=== PATIENT | male | born 1990 | race Caucasian/White ===

== ENCOUNTER 2024-09-27 08:00 | Outpatient (RCR) | payer OTHER, SELFPAY ==
--- NOTE | 2024-09-27 09:00 | BH.SGPN.GN ---
Behaviors/Verbalizations/Mental Status: [] Eye contact is good. Motor activity is appropriate. Appearance is casual. Speech is Appropriate. Mood is depressed. Affect is constricted. Thoughts are linear and logical. No evidence of psychosis. Reviewed daily check in sheet and no reports of suicidal ideations or intent. Client Response/Progress/Benefit: [] Pt was an active participants in group discussions. Daily symptom tracker notes 5 for depression and 5 for anxiety. Attentive. Today was pt's first day in IOP and he briefly introduced himself and his struggles. According to pt he would benefit from increased coping/life skills and having a better headspace. Shared I get really depressed and lonely a lot. He did not share his recent psychiatric and residential admissions. No progress noted as this was his first day in IOP. Benefited from group support, encouragement, and feedback. Will continue in [facility] to maintain safety, prevent decompensation/re-admission to psych unit, and increase healthy coping strategies. Narrative Note: []
--- NOTE | 2024-09-27 09:58 | BH.COMM ---
Communication Note Communication with Client Communication Note: Met with pt to complete initial paperwork and administer the CSSR-S screening and risk assessment. Pt is a moderate-high risk AEB pt?s report of having recent fleeting SI without plan or intent as well as previous attempt ~7 months ago via overdose on Propranolol; does have a hx of chronic SI and one self-aborted attempt ~5 years ago via hanging self with belt. Pt also has a history of multiple inpatient psychiatric hospitalizations since age 15 and reports he has been in various psychiatric facilities 10 of the last 12 months. Pt denies any active SI today and reports his mother and goals for future as projective factors. Pt does not have a history of self-harming. Provided lethal means counseling and pt understands the reasons to remove any excess medications, agreeable to do so should he find any. Pt reports ability to maintain safety today. Discussed case with Dr. Monsalve and pt will be admitted to [facility] tx with a diagnosis of MDD F33.2
--- NOTE | 2024-09-27 10:15 | BH.SGPN.GN ---
Behaviors/Verbalizations/Mental Status: []Client alert and oriented, casually dressed and groomed. Eye contact good. Motor activity appropriate. Speech within normal limits. Affect congruent, mood depressed. Thoughts linear, logical, no signs of hallucinations or delusions. Client Response/Progress/Benefit: [] Pt 1st day in IOP tx; responded well to session AEB actively participating throughout group. Pt was attentive throughout group activity discussing famous individuals and how they overcame failure to be successful. Pt helped group identify how fear of failure can impact mental health and relationships. Pt personally identified it leads to pt shutting down and isolating. Participated in experiential activity, working with group members to problem solve. Appeared to benefit from increased knowledge of what causes fear of failure and how it impacts people. Will continue IOP tx to prevent decompensation, improve daily functioning, and maintain safety. Narrative Note: []
--- NOTE | 2024-09-27 11:15 | BH.SGPN.GN ---
Behaviors/Verbalizations/Mental Status: []Pt alert and oriented, neatly dressed and groomed. Eye contact good. Motor activity appropriate. Speech within normal limits. Affect congruent, mood depressed. Thoughts linear, logical, no signs of hallucinations or delusions. Client Response/Progress/Benefit: [] Pt responded well to session, engaged in the experiential activity and attentive throughout group processing. Pt reported fear of failure has kept Pt from socializing, education, and knowing his genuine self. Pt completed fear of failure worksheet and was able to identify thoughts and behaviors that reinforce personal fear of failure including low self-esteem, high standards, and avoidance. Pt participated in small group discussion regarding strategies to overcome fear of failure. Identified wanting to work on acceptance that setbacks will occur and setting small goals. Appeared to benefit from increased knowledge of strategies to combat fear of failure and gaining self-awareness. Pt will continue IOP tx to prevent decompensation and rehospitalization. Narrative Note: []
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
--- NOTE | 2024-09-27 12:00 | BH.MTP_ITS ---
[facility] Treatment Plan Patient Information Program Physician:: Mirela Vásquez Primary Therapist:: Roberto Hewitt Psychiatric Diagnoses Psychiatric Diagnoses:: 1. Major depressive disorder, recurrent, severe without psychosis 2. Anxiety disorder, NOS 3. Marijuana use disorder 4. Alcohol use disorder 5. Nicotine use disorder Diagnosis Code(s):: F33.2 Estimated LOS Estimated LOS (in weeks):: 8 Problem/Goal #1 Problem/Goal #1 Stated Goal:: Client will reduce depressive symptoms, worthlessness, guilt, passive thoughts of , and negative core beliefs associated with major depressive disorder AEB self-report and reduction of scores on the depression domain of the DSM-5 cross-cutting scales. Description of Barriers: Has received treatment at different levels of care since January (inpt psych, residential, traditional outpt, PHP, and IOP) with limited stability. Functional Impact: Depression has significantly impacted pt's functioning resulting in two residential facility and psych admissions since January 2024. Pt has been on FMLA from work for an extended period of time. Recently returned to work and was decompensating. Goal Relevant Strengths/Supports: Intelligent, well-versed in mental health skills, strong foundation of psychoeducation. Objectives Objective #1: Stated Objective: Client will work with therapist to develop a ?crisis plan? or emotional dysregulation plan which includes emergency telephone numbers, internal/external coping strategies for SI/overwhelming emotions, lists of supports, warning signs, positive aspects of life, and motivations Interventions: Client will work with therapist to develop a ?crisis plan? or emotional dysregulation plan which includes emergency telephone numbers, internal/external coping strategies for SI/overwhelming emotions, lists of supports, warning signs, positive aspects of life, and motivations Discharge Criteria: Complete emotion regulation plan. Reduction of scores on the depression and SI domains of the DSM-5 cross-cutting scales Target Date: 11/12/24 Review Date: 10/27/24 Objective #2: Stated Objective: Client will learn and utilize 2-3 healthy coping strategies (i.e. journaling, mental health apps for phone, affirmations, etc) to incorporate on a daily basis to manage depressive symptoms as shown by reduced DSM-5 cross-cutting symptom measure score. Interventions: Through individual and group counseling pt will be introduced to healthy strategies that can be utilized on a consistent basis. Therapist will work with patient on incorporating and practicing these strategies' consistently. Discharge Criteria: Pt will have chosen at least 3 healthy coping strategies that he is incorporating in his daily life. Target Date: 10/27/24 Review Date: 11/12/24 Problem/Goal #2 Problem/Goal #2 Stated Goal:: Client will reduce overall frequency, intensity, and duration of anxiety to improve functioning AEB self-report as well as reduction on the anxiety domain of the DSM-5 cross-cutting scales. Description of Barriers: Has received treatment at different levels of care since January (inpt psych, residential, traditional outpt, PHP, and IOP) with limited stability. Currently tapering down from 4mg of Ativan daily which has impacted his ability to manage anxiety. Functional Impact: Anxiety has significantly impacted pt's functioning resulting in two residential facility and psych admissions since January 2024. Pt has been on FMLA from work for an extended period of time. Recent return to work and tapering of Ativan have resulted in decompensation of mental health. Objectives Objective #1: Stated Objective: Client will identify and replace 2-3 mistaken core beliefs patterns that reinforce anxiety symptoms and negative self-talk.. Interventions: Through individual and group counseling will help client identify distorted, negative core beliefs about self and replace with more realistic, affirmative messages. Provide education on the impact mistaken aaron efs have on thoughts, emotions, and behaviors. Therapist will encourage client to practice thought challenging and thought logs. Discharge Criteria: Able to identify 2-3 mistaken core beliefs and CBT strategies to challenge these beliefs on a consistent basis Target Date: 11/12/24 Review Date: 10/27/24
--- NOTE | 2024-09-29 09:05 | BH.SGPN.GN ---
Behaviors/Verbalizations/Mental Status: [] Pt alert and oriented, casually dressed and groomed. Eye contact good. Motor activity appropriate. Speech within normal limits. Affect congruent, mood content. Thoughts linear, logical, no signs of hallucinations or delusions. Reviewed pt?s symptom tracker, no risk for suicidal ideation, plan, or intent 09/29/24 Client Response/Progress/Benefit: [] Pt was an active participant in group discussions. Attentive. Able to identify mental health wins including starting the [place] and TMS treatment yesterday, as well as starting to taper off of his anti-anxiety medication which is stressful but pt is proud of his ability to do so. Stressor noted as fear of relying more on marijuana to cope as he tapers off of medication. Identified costs of doing so and skills he can use to prevent this. Benefited from group support, encouragement, and feedback. Will continue in IOP to prevent decompensation, promote mood stability, and continue to improve use of healthy coping skills. Narrative Note: []
--- NOTE | 2024-09-29 11:10 | BH.SGPN.GN ---
Behaviors/Verbalizations/Mental Status: [] Pt alert and oriented, casually dressed and groomed. Eye contact good. Motor activity appropriate. Speech within normal limits. Affect congruent, mood euthymic. Thoughts linear, logical, no signs of hallucinations or delusions. Client Response/Progress/Benefit: [] Pt was an active participant AEB pt providing input and listening attentively to peers. Attentive during psychoeducation on mindfulness coping skills and their impact on reducing anxiety and improving overall mental health wellness. Group was able to identify self-soothing and mind-based coping skills which included: 5-senses, meditation, deep breathing, TIPP, thought challenging, and progressive muscle relaxation. Pt also participated with peers in practicing mindfulness skills in session including deep breathing. Pt would like to work on using exercise, grounding, and breathing skills to manage anxiety. Appeared to benefit from increasing repertoire of anxiety reduction skills. Pt will continue in IOP tx to improve distress tolerance, challenge distortions, and prevent decompensation.
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
--- NOTE | 2024-09-29 12:44 | BH.DR.ITP ---
Initial Treatment Plan Patient Information Visit Information: ADMISSION DATE: EXPECTED LOS: 4-6 weeks Problems/Symptoms Problem #1:: Depression Symptom:: Sadness, hopelessness, worthlessness, guilt, biological disruption of appetite, low energy, decreased concentration, passive thoughts of , passive, fleeting suicidal ideation Problem #2:: Anxiety Symptom:: Worry, rumination, impending sense of doom, avoidance
--- NOTE | 2024-10-01 09:00 | BH.SGPN.GN ---
Behaviors/Verbalizations/Mental Status: [] Client alert and oriented, casual appearance. Eye contact fair. Motor activity appropriate. Speech within normal limits. Affect congruent, mood anxious. Thoughts linear, logical, no signs of hallucinations or delusions. Reviewed client's symptom tracker, no risk for suicidal ideation, plan, or intent. Client Response/Progress/Benefit: [] Client responded well to session AEB listening to others and sharing thoughts/feelings. Client reported mental health positive as significantly cutting down on his marijuana use since last time attended IOP. Client stated he knows going back to significant marijuana use doesn't make him feel better. Client reported additional mental health positive as choosing to help out a co-worker instead of just choosing to go home. Client reported current stressor as tapering off a medication he has been put on when he was in residential care. Will continue IOP tx to improve distress tolerance, increase healthy coping skills, and prevent decompensation.
--- NOTE | 2024-10-01 10:15 | BH.SGPN.GN ---
Behaviors/Verbalizations/Mental Status: [] Eye contact is good. Motor activity is appropriate. Appearance is casual. Speech is Appropriate. Mood is depressed. Affect is restricted. Thoughts are linear and logical. No evidence of psychosis. Client Response/Progress/Benefit: [] Pt was an active participant during group discussions and group activities. This portion of group was very psychoeducation heavy and pt was attentive during psychoeducation. Engaged during activity in which they identified which type of foods (i.e. carbs, sugar, salt, fast food, caffeine, etc) they seek out when sad, tired, angry, stressed, anxious, etc. Pt was able to identify the impact that certain foods have on their mental health through group example which was beneficial. Benefited from increased awareness of the connection between nutrition and mental health. Will continue in IOP to prevent decompensation/re-admission to psych unit, maintain safety, and improve healthy coping strategies. Narrative Note: []
--- NOTE | 2024-10-01 11:15 | BH.SGPN.GN ---
Behaviors/Verbalizations/Mental Status: [] Client alert and oriented, casually dressed and groomed. Eye contact good. Motor activity appropriate. Speech within normal limits. Affect congruent, mood depressed. Thoughts linear, logical, no signs of hallucinations or delusions. Client Response/Progress/Benefit: []Client was an active participant throughout AEB contributing to group discussion and taking notes. Client provided input during small group discussion on strategies to combat each factor maintaining adverse nutritional cycles. Worked with group to identify ways to foster more mindful nutritional choices. Each group participant identified one small step they could take today to begin establishing mental wellness promoting nutritional choices. Client identified plans to braga compare where he shops to find cheaper but healthier alternatives.?Appeared to benefit from gaining insight into mental wellness centered nutrition and identifying personal steps client can take to support own nutritional psychology. Recommended continued IOP tx to prevent decompensation, promote mood stability, and improve overall functioning.? Narrative Note: []
--- NOTE | 2024-10-01 12:05 | BH.MDN ---
Multi-Disciplinary Note Note 60-min Individual: Time Started:: 12:05 Date: 10/01/24 Purpose of session/treatment goals addressed:: Used the session to develop treatment plan goals. Eye Contact:: Poor Motor Activity:: Appropriate Appearance:: Casual Speech:: Appropriate Mood:: Depressed Affect:: Congruent Thoughts:: Linear, Logical and No evidence of hallucinations/delusions noted Staff Interventions:: rapport building, treatment planning and goal setting Client Response:: Pt states that IOP is going well. According to pt he got a lot from today's group on nutritional psychology. Interested in changing his diet to benefit his mental health. Future-oriented and appears motivated. Used to session to discuss goals for IOP. Pt states I just wanna learn how to coping when I'm in deep depression ... aside from just waiting for it to pass. Also reports that he wants to be able to incorporate mental health into his daily life. Also reporting that he needs to figure himself out. Has a strong desire to be social and isolate less. Risks/Concerns:: Denies active suicidal ideations, plan, or intent. Progress Toward Goals/Plan:: Consistent and engaged in IOP. Benefited from group support and psychoeducation. I just need to be around this stuff on a frequent basis. Shared that he will often forget skills if not used daily. Was given task to identify strategies related to mental health into his daily life (phone apps, journaling, guided meditation, podcasts, etc). Struggles when alone. Was able to identify a plan for this weekend to keep himself active and complete tasks. He discussed the improtance of self-care (showering) consistently to help with his depression. Developed behavioral activation and opposite-action plan. In talking with pt he verbalizes several common mistaken core beliefs. Will provide education and dive deeper into this during next session. No progress noted however this is pt's first week in IOP. Will continue in IOP to maintain safety, prevent decompensation, and increase healthy coping. Pt is working with his outpatient psychiatrist to began nasal Spravata and TMS. Time Stopped:: 01:00
--- NOTE | 2024-10-04 09:05 | BH.SGPN.GN ---
Behaviors/Verbalizations/Mental Status: [] Eye contact is good. Motor activity is appropriate. Appearance is casual. Speech is Appropriate. Mood is anxiety. Affect is congruent. Thoughts are linear and logical. No evidence of psychosis. Reviewed daily check in sheet and no reports of suicidal ideations or intent. Client Response/Progress/Benefit: [] ?Pt was an active participant in group discussions. Attentive. Daily symptom tracker notes 01/19 for anxiety. He reports that the weekend was challenging however as able to ?get some cleaning done?. Pt was alone all weekend which was ?shitty?. Struggles with negative thoughts, depression, and urges to self-medicate with marijuana when alone. ? I know smoking is not good fro me?. Recent medication changes (tapering benzos) has been impacting his anxiety. Limited progress noted. Benefited from group support, encouragement, and feedback. Will continue in IOP to prevent decompensation/re-admission to psych unit, decrease anxiety, and improve functioning. Narrative Note: []
--- NOTE | 2024-10-04 10:10 | BH.SGPN.GN ---
Behaviors/Verbalizations/Mental Status: [] Eye contact is good. Motor activity is appropriate. Appearance is casual. Speech is Appropriate. Mood is dysthymic. Affect is constricted. Thoughts are linear and logical. No evidence of psychosis. Client Response/Progress/Benefit: [] Pt receptive of session, actively engaged throughout AEB taking notes, providing input, and contributing in small group discussion. Appeared to connect with group topic of automatic thoughts and cognitive distortions, as well as the impact of thought patterns on mental health, coping behaviors, and relationships. This particular group is very heavy on psychoeducation and pt appeared to connect with distortions and how they can impact functioning. Identified struggling with overgeneralization distortion. Pt appeared to benefit from gaining insight on distorted thinking patterns and how this impacts overall mental health. Will continue IOP to increase utilization of healthy coping skills, challenge negative thoughts, and prevent decompensation.
--- NOTE | 2024-10-04 11:15 | BH.SGPN.GN ---
Behaviors/Verbalizations/Mental Status: [] Eye contact is good. Motor activity is appropriate. Appearance is casual. Speech is Appropriate. Mood is depressed and agitated. Affect is congruent. Thoughts are linear and logical. No evidence of psychosis. Client Response/Progress/Benefit: [] Pt was an active participant during group discussion. Pt was placed in a smaller group and participated in cognitive distortions jeopardy game with peers. Pt was engaged in the smaller group, participated in group interactions to brainstorm answers, and appeared to be comprehending cognitive distortions. Pt stated could connect with many of the distortions covered in group. Pt stated they now have knowledge on how more effectively identify and challenge distorted thought patterns. Benefited from gaining further insight and awareness of cognitive distortions as well as practicing ways to reframe and challenge thoughts. Will continue in IOP tx to increase healthy thinking patterns, functioning, and reduce maladaptive coping behaviors. Narrative Note: []
--- NOTE | 2024-10-06 09:05 | BH.SGPN.GN ---
Behaviors/Verbalizations/Mental Status: [] Client alert and oriented, casual appearance. Eye contact good. Motor activity appropriate. Speech within normal limits. Affect congruent, mood euthymic. Thoughts linear, logical, no signs of hallucinations or delusions. Reviewed client's symptom tracker, no risk for suicidal ideation, plan, or intent. Client Response/Progress/Benefit: [] Client responded well to session AEB listening to others and sharing thoughts/feelings. Per daily symptom tracker client reported a 1/5, with 5 being severe, for depression and a 0/5 for anxiety. Client reported mental positive as being able to go to work yesterday and felt like he could function really well. Client stated while at work he did not feel like he was having a lot of racing thoughts or anxiety. Client stated additional himself positive as having a individual therapy appointment yesterday and thinking that God went really well. Client stated a positive and stressor is that he has an interview today at 4 PM for a great opportunity to change jobs. Client stated this potential job would be better pay and give him good opportunity for additional growth. However client noted if he does get this job it could mean he will not be able to continue with some of the therapeutic interventions he has planned in the near future. Client agreeable to discuss further with his IOP individual therapist before making any decisions. Appeared to benefit from support from peers. Will continue IOP tx to reinforce use of healthy coping skills, decrease anxiety, and prevent decompensation. Narrative Note: []
--- NOTE | 2024-10-06 10:10 | BH.SGPN.GN ---
Behaviors/Verbalizations/Mental Status: []Pt alert and oriented, disheveled appearance. Eye contact good. Motor activity appropriate. Speech within normal limits. Affect congruent, mood anxious. Thoughts linear, logical, no signs of hallucinations or delusions. Client Response/Progress/Benefit: [] Pt was an active participant in group discussion. Attentive during psychoeducation on the CBT [place] (Thoughts, Behaviors, Emotions). Engaged in group discussion on how thoughts and behaviors can contribute to maintaining adverse feelings, such as depression, anxiety, and irritability. Completed worksheet in which pt identified a thought that is keeping them stuck or is in obstacle to increased mental wellness. The thoughts that pt identified were ?I don?t know how to live stable, happy, or healthy.? Shared this maintains depression and anxiety cycles. Pt benefited from increased awareness of the basis of CBT therapy as well as specific thoughts that are impacting pt's progress. Will continue in IOP to prevent decompensation, improve daily functioning, and increase distress tolerance. Narrative Note: []
--- NOTE | 2024-10-06 11:15 | BH.SGPN.GN ---
Behaviors/Verbalizations/Mental Status: []Pt alert and oriented, casually dressed and groomed. Eye contact good. Motor activity appropriate. Speech within normal limits. Affect congruent, mood depressed and anxious. Thoughts linear, logical, no signs of hallucinations or delusions. Client Response/Progress/Benefit: [] Pt responded well to session, contributing to discussion and attentive throughout discussion. Pt identified a negative thought that has kept them stuck. Pt's thought was I don't know how to live stable, healthy, and happy.? Pt reported when they think this way, pt isolates and self-sabotages. Pt worked to reframe the thought by finding more rational, realistic ways to look at the thoughts and then processed them within group setting. Pt reframed the thought to ?If I continue to work on me, I will be more comfortable and capable of maintaining stability.? Pt appeared to benefit from practicing challenging negative thinking with peers and gaining coping skills. Pt will continue IOP tx to promote mood stability, increase thought challenging, and further increase self-confidence. Narrative Note: []
--- NOTE | 2024-10-08 09:00 | BH.SGPN.GN ---
Behaviors/Verbalizations/Mental Status: [] Eye contact is good. Motor activity is appropriate. Appearance is casual. Speech is Appropriate. Mood is euthymic. Affect is full. Thoughts are linear and logical. No evidence of psychosis. Reviewed daily check in sheet and no reports of suicidal ideations or intent. Client Response/Progress/Benefit: [] Pt was an active participant in group discussions. Attentive. Minimal distress noted on symptom tracker. ? I?m starting Ketamine next? week?. Elaborated on the role of nasal ketamine in mental health treatment as well as treatment resistant depression. Also shared that he has a job interview this afternoon and is thinking about moving to [place]. Progress noted. Benefited from group support,encouragement, and feedback. Will continue in [facility] to maintain safety, prevent decompensation/re-admission, and to increase healthy coping. Narrative Note: []
--- NOTE | 2024-10-08 10:30 | BH.MDN ---
Multi-Disciplinary Note Note 60-min Individual: Time Started:: 10:30 Date: 10/08/24 Purpose of session/treatment goals addressed:: Reviewed progress and current symptoms. Addressed treatment plan goals 1 and 2. Eye Contact:: Poor Motor Activity:: Appropriate Appearance:: Casual Speech:: Appropriate Mood:: Anxious and Depressed Affect:: Congruent Thoughts:: Linear, Logical and No evidence of hallucinations/delusions noted Staff Interventions:: rapport building, goal setting and other (Dual Diagnosis, Addiction cycle, developed strategies to utilize to decrease self-medication with marijuana. ) Client Response:: Pt shared that he has a job interview this afternoon for a position in [place], [place]. If he gets the new job he will have to move to [place] as well. Motivated by money as new position would pay significantly more, however he has concerns on how this will impact his mental health. Current employer has been very accommodating regarding his mental health struggles and overall he enjoy the work environment. He is also scheduled to start nasal ketamine next week, which will last 4 weeks. However if he starts new job he will not be able to follow through with TMS. Reviewed pros and cons of making the switch. He is going to research the new employer and follow through with interview. Remainder of the session discussion was had about daily strategies to incorporate into daily life (journaling, mental health apps, and thought log). During this discussion pt discussed current struggles with self-medicating with marijuana which is leading to decreased energy and motivation as well as increased guilt and urges to numb out emotions. Developed goals to reduce frequency of use and to implement relapse prevention strategies to combat urges. Risks/Concerns:: No risks or concerns noted. Denies active suicidal ideations, plan, or intent. Progress Toward Goals/Plan:: Consistent and engaged in IOP. Medication compliant. Plans to start nasal ketamine next week. Will receive ketamine twice a week for 4 weeks. His outpatient provider is also recommending TMS to start following ketamine and while pt is agreeable this would change if he gets a new job. Feels that IOP is going well . Benefits from support and education. No suicidal ideations since starting IOP. Primarily struggles when alone during the week (Spends weekend with GF in [place]). When alone he admits increased marijuana use due to loneliness and urges to numb thoughts/emotions. The tapering of Klonopin has also increased anxiety and urges to smoke to calm. Has extensive knowledge of skills gathered from recent treatment however struggles to implement when in distress. Honest with therapist and we began to develop strategies to address self-medication. Will continue in IOP to prevent decompensation, stabilize mood, and increase healthy coping. Time Stopped:: 11:20
--- NOTE | 2024-10-11 09:00 | BH.SGPN.GN ---
Behaviors/Verbalizations/Mental Status: [] Eye contact is good. Motor activity is appropriate. Appearance is casual. Speech is Appropriate. Mood is depressed and anxious. Affect is full. Thoughts are linear and logical. No evidence of psychosis. Reviewed daily check in sheet and pt denies suicidal ideations and intent. Client Response/Progress/Benefit: [] Pt participated throughout. Attentive and providing supportive feedback to peers. Daily symptom tracker notes 11/21 for anxiety and /5 depression. Reports mental health wins as using positive self-talk and sitting with the uncomfortable to manage anxiety this morning as he was not able to take his medication due to possible interactions with the Spravato tx he begins today. Reports some anxiety about this as he is unsure of whether he will be able to take his anti-anxiety medications after tx or not. Did well to identify several skills he can use to aid in managing anxiety throughout the remainder of the day including healthy distraction, deep breathing, and grounding skills. Benefited from group support, encouragement, and feedback. Will continue in IOP to prevent decompensation, stabilize mood, and further improve functioning. Narrative Note: []
--- NOTE | 2024-10-11 10:15 | BH.SGPN.GN ---
Behaviors/Verbalizations/Mental Status: []Patient was alert and oriented, casually dressed and fairly groomed. Eye contact good. motor activity congruent. speech within normal limits. Affect congruent, mood dysthymic. Thoughts linear, logical, no signs of hallucinations or delusion. Client Response/Progress/Benefit: []Pt participated in the group discussions AEB nodding and taking notes. Attentive during psychoeducation Goal Setting. Participated during the discussion on common barriers. Pt stated a personal barrier to accomplishing goals is unrealistic expectations. Group also identified benefits of goals as sense of purpose, improved self-confidence, more motivation for other goals, and improved mental health. Pt identified personal benefits to goal setting. Benefited from increased awareness of mental health benefits of goals as well as psychoeducation on SMART goal criteria. Will continue in IOP to improve distress tolerance, challenge negative thoughts, and prevent decompensation.
--- NOTE | 2024-10-11 11:10 | BH.SGPN.GN ---
Behaviors/Verbalizations/Mental Status: []Pt alert and oriented, casually dressed and groomed. Eye contact fair. Motor activity appropriate. Speech within normal limits. Affect constricted, mood anxious. Thoughts linear, logical, no signs of hallucinations or delusions. Client Response/Progress/Benefit: [] Pt was engaged during discussion and willing to complete the worksheet challenging them to develop a personal SMART goal. Pt chose the goal of cutting down smoking to only 2-3x a day at the most. Pt stated fear of negative thoughts, justification, and fear of leaving his comfort zone as barriers. Identified solutions of positive affirmations, sitting with the uncomfortable, and finding alternative ways to ?treat myself.? Benefited from this group by developing a short-term SMART goal related to mental health. Will continue IOP tx to prevent decompensation, gain distress tolerance skills, and improve daily functioning. Narrative Note: []
--- NOTE | 2024-10-13 09:05 | BH.MDN_ITS ---
Multi-Disciplinary Note Note 60-min Individual: Time Started:: 09:05 Date: 10/13/24 Purpose of session/treatment goals addressed:: Reviewed progress and current symptoms. Began emotional dysregulation plan. Eye Contact:: Poor Motor Activity:: Appropriate Appearance:: Disheveled Speech:: Appropriate Mood:: Depressed Affect:: Flat Thoughts:: Linear, Logical and No evidence of hallucinations/delusions noted Staff Interventions:: thought challenging, completed risk assessment / safety planning (reviewed safety plan and completed emotion dysregulation plan. ), goal setting (worken on strategies for the next few days. ) and taught coping skills (reviewed mindfullness, calming, and grounding skills. ) Client Response:: Pt reports being really down today. He expressed some concerns to his current GF regarding their relationship and it didn't go well. He was vague on the specifics however according to pt he expressed a desire to be more engaged with her during the week which led to conflict. Catastrophizing that the relationship is going to end and is expecting a text from her this AM regarding her decision. Ruminating and feeling guilty about disclosing his concerns and is fearful that will lead to break-up. I want to be strong enough to make it through all of this. Majority of the session was spent on strategies and skills to utilize during the next few days. An individualized emotion dysregulation plan was completed which included specific internal coping skills, external coping skills, distractions, affirmation, and reframing statements to challenge negative automatic thoughts. Included in the plan was also crisis numbers and encouragements to reach out to support (mother). Mother is primary support as he disclosed recent struggles with her and spent last evening talking with her. Therapist also challenged current negative automatic thoughts pointing out progress since August which was beneficial. Pt denies active suicidal ideations, plan, or intent. He reports his thoughts are passive. Future-oriented as he has appointment with outpatient mental health provider this afternoon for Spravato and TMS treatment. Risks/Concerns:: Denies active suicidal ideations, plan, or intent. Endorses passive thoughts of and survival ambivalence which is long- standing. Currently future-oriented. Pt did receive text from his GF after the session and according to patient we are going to work it out. This therapist witnessed him texting and smiling during 2nd group in [facility] as well. He did not present as imminent danger to himself as he was denying active SI, plan, or intent and was future-oriented. Slight resolution of primary stressor (relationship conflict) which also decreased depression towards the end of IOP. Safety/Regulation plan created and reviewed. Progress Toward Goals/Plan:: Regression noted. 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 Limited benefit from initial Spravato treatment stating it caused dissociation and fatigue which led to low energy. On days when he has these treatments he cannot take his PRN Klonopin or his ADHD medication which has increased his anxiety this week. Responded well to therapist challenging and walking through skills therefore emotional dysregulation plan was created, printed out, and given to patient. Encouraged him to use this plan over the next few days and if he feels overwhelmed. Developed a plan for the next few days as well which included going to the gym, spending time with family, and completing tasks in his house. He also agreed to download a mental health liliane which can provided affirmation, thought challenging suggestions, and other helpful tasks. Time Stopped:: 10:00
--- NOTE | 2024-10-13 10:15 | BH.SGPN.GN ---
Behaviors/Verbalizations/Mental Status: [] Eye contact is good. Motor activity is appropriate. Appearance is casual. Speech is Appropriate. Mood is depressed. Affect is congruent. Thoughts are linear and logical. No evidence of psychosis. Pt was often seen on his phone. Told therapist after group he was texting with GF as they were working through recent conflict. Client Response/Progress/Benefit: [] Limited participation in groups discussions. Attentive at times during psychoeducation on the 4 communication styles (Passive, Passive-Aggressive, Aggressive, and Assertive) and the obstacles to effective communication. ?Participated at times during interactive discussions on the benefits and disadvantages to each communication style. Along with peers was able to identify struggles and illusions to effective communication. Pt believes that they are most often passive which makes him feel alone as well as feeling as if his needs aren't met. Benefited from increased understanding of communication styles and how these can impact effective communication. Will continue in IOP tx to prevent decompensation/re-admission to psych unit, increase healthy coping, and stabilize depression/anxiety. Narrative Note: []
--- NOTE | 2024-10-13 11:15 | BH.SGPN.GN ---
Behaviors/Verbalizations/Mental Status: []Pt alert and oriented, disheveled appearance. Eye contact good. Motor activity appropriate. Speech within normal limits. Affect congruent, mood depressed and distracted. Thoughts linear, logical, no signs of hallucinations or delusions. Client Response/Progress/Benefit: [] Pt responded well to session AEB Pt listening attentively to others and providing input during group discussion on the pay offs and costs of the different communication styles. Pt able to connect how current communication style impacts mental health. Connected with peers? comments about importance of using assertive communication. Pt did well with practicing being assertive in the group activity and worked with group to identify potential skills for improving communication skills. Pt stated she will practice being assertive by not shutting down as much. Pt seemed to benefit from increasing awareness of healthy strategies to improve communication. Will continue IOP tx to prevent decompensation, improve mood stability, and increase application of healthy coping skills. Narrative Note: []
--- NOTE | 2024-10-13 12:11 | PCM.BH.PN ---
Progress Note Progress Note: History of Present Illness/Interim History: The patient is a 33-year-old single male with a long history of mental health issues and a recent worsening of depression and anxiety who is seen in follow-up at the [facility] behavioral health IOP. He also has a history of ADHD and marijuana use disorder and has had about 20 psychiatric admissions total in his lifetime, 4 admissions in the past 8 months including 2 admissions to residential mental health facilities. The patient states that he is very depressed today and attributes this to issues with his relationship with his girlfriend. The patient did not want to elaborate on the details of the conversation but stated that he brought up an issue that he felt need to be discussed with his girlfriend and it did not go well and he is now very depressed. Patient is also undergoing Spravato treatment and TMS treatment somewhat simultaneously and has had 1 Spravato treatment so far and has another one scheduled later today. He is still using marijuana often during the day and his decrease his Klonopin to 2 mg total daily in order to get the Spravato treatment. He states that he continues to have passive thoughts of and passive, fleeting suicidal ideation which is has not changed. He denies active suicidal ideation, plan for suicide, homicidal ideation, hallucinations or delusions. Current Psychiatric Medications: [] Seroquel 200 mg p.o. nightly; lithium 900 mg p.o. daily; propranolol 20 mg p.o. 3 times daily; Remeron 45 mg p.o. nightly; Klonopin recently weaned down to 2 mg p.o. daily total.; Adderall XR 15 mg p.o. every morning; Cymbalta 120 mg p.o. daily. Mental Status Examination: [] The patient is a 33-year-old , muscular male who appears normal for stated age and is casually dressed and groomed with good hygiene. He is ambulatory with a normal gait and has no psychomotor agitation or retardation. He is cooperative during the interview but appears very down and depressed today. Eye contact is poor today as patient looks down most of the time. Speech is normal rate and rhythm and fluent with no pressure. Mood is depressed. Affect is flat. Thought process is goal-directed and organized. Thought content: There is evidence of passive thoughts of and fleeting, passive suicidal ideation. There is no evidence of active suicidal ideation, homicidal ideation, hallucinations, delusions. Reality testing is intact. Intelligence is above average. Judgment is intact. Insight is limited but some present. Impulsivity is high. Diagnoses: [] 1. Major depressive disorder, recurrent, severe without psychosis 2. Anxiety disorder, NOS 3. Marijuana use disorder 4. Alcohol use disorder 5. Nicotine use disorder 6. Primary support issues Plan: [] The patient will continue the IOP in behavioral health and will also continue his other treatment outpatient which includes Spravato and possibly TMS soon. He felt safe during the interview and if it anytime he does not feel safe he has agreed to let us know or go to the emergency room. No medication changes were made today. He will continue to follow-up with his outpatient providers and is has an appointment with his outpatient psychiatric provider later today. He will continue to try to decrease his marijuana and alcohol use. I will see the patient in follow-up while he is in the IOP.
--- NOTE | 2024-10-15 11:32 | BH.COMM ---
Communication Note Communication with Client Communication Note: Pt did not show for IOP this AM. Spoke with patient over the phone. Reports that he overslept. No SI reported. Future-oriented (spending the weekend with GF and has job interview on Friday). Followed through with [facility] and TMS treatment on Friday). Will return to IOP next week.
== END 2024-10-16 23:59 ==
LOC: BHIOP 08:00
PROVIDERS: Referring Provider Psychiatry & Neurology Psychiatry; Visit Provider Psychiatry & Neurology Psychiatry
DX: F33.2 Major depressive disorder, recurrent severe without psychotic features (principal); F41.9 Anxiety disorder, unspecified; F12.90 Cannabis use, unspecified, uncomplicated; F10.90 Alcohol use, unspecified, uncomplicated; F17.210 Nicotine dependence, cigarettes, uncomplicated
CPT/HCPCS: S9480; 90837; 90853